=== PATIENT | male | born 1975 | race Caucasian/White ===

== ENCOUNTER 2020-04-18 16:56 | Emergency (ER) | payer SELFPAY ==
[2020-04-18] MEDS ORDERED: LORAZEPAM INJ 2 MG/1 ML VIAL IV ONE (18:09)
[2020-04-18 18:51] LABS: ABSOLUTE LYMPHOCYTES (AUTO) 3.1 10^3/uL (0.5-4.7); ABSOLUTE MONOCYTES (AUTO) 0.6 10^3/uL (0.1-1.4); ABSOLUTE NEUT (AUTO) 4.2 10^3/uL (1.7-8.2); BASOPHILS % (AUTO) 0.3 % (0-2); EOSINOPHILS % (AUTO) 0.1 % (0-6); HEMATOCRIT 45.8 % (37.9-51.0); HEMOGLOBIN 16.1 g/dL (13.5-17.0); LYMPHOCYTES % (AUTO) 39.3 % (13-45); MEAN CORPUSCULAR HEMOGLOBIN 33.9 pg (27.0-33.4); MEAN CORPUSCULAR HGB CONC 35.2 g/dL (32.0-36.0); MEAN CORPUSCULAR VOLUME 96 fl (80-97); MONOCYTES % (AUTO) 7.3 % (3-13); PLATELET COUNT 242 10^3/uL (150-450); RED BLOOD COUNT 4.75 10^6/uL (4.35-5.55); RED CELL DISTRIBUTION WIDTH 13.9 % (11.5-14.0); TOTAL CELLS COUNTED % (AUTO) 100 %; WHITE BLOOD COUNT 7.9 10^3/uL (4.0-10.5)
[2020-04-18 19:00] LABS: ALBUMIN 5.1 g/dL (3.5-5.0); ALCOHOL 126 mg/dL (NONE DETECTED); ALKALINE PHOSPHATASE 49 U/L (38-126); ANION GAP 14 (5-19); ASPARTATE AMINO TRANSFERASE 33 U/L (17-59); BILIRUBIN,DIRECT 0.1 mg/dL (0.0-0.4); BILIRUBIN,TOTAL 0.3 mg/dL (0.2-1.3); BLOOD UREA NITROGEN 9 mg/dL (7-20); CALCIUM 10.8 mg/dL (8.4-10.2); CARBON DIOXIDE 25 mmol/L (22-30); CHLORIDE 101 mmol/L (98-107); GLUCOSE 287 mg/dL (75-110); POTASSIUM 4.2 mmol/L (3.6-5.0); SALICYLATE 1.2 mg/dL (2.0-20.0); TOTAL PROTEIN 8.5 g/dL (6.3-8.2)
[2020-04-18 19:06] LABS: ACETAMINOPHEN < 10 ug/mL (10-30)
[2020-04-18 19:12] LABS: APPEARANCE,URINE CLEAR; BILIRUBIN,URINE NEGATIVE (NEGATIVE); COLOR,URINE STRAW; GLUCOSE, URINE >=500 mg/dL (NEGATIVE); KETONES,URINE TRACE mg/dL (NEGATIVE); LEUKOCYTE ESTERASE,URINE NEGATIVE (NEGATIVE); NITRITE,URINE NEGATIVE (NEGATIVE); PROTEIN,URINE NEGATIVE (NEGATIVE); UROBILINOGEN,URINE NEGATIVE mg/dL (<2.0)
--- NOTE | 2020-04-18 19:12 | ER Document Report ---
ED Substance Abuse / Acc. OD - General Chief Complaint: ETOH Abuse Stated Complaint: POSSIBLE ETOH Mode of Arrival: Medic Information source: Patient, Emergency Med Personnel Cannot obtain history due to: Intoxicated Notes: Patient is a 44-year-old male was brought in by EMS with complaint of intoxication and Depakote abuse. Patient is being agitated loud and verbal condescending to nursing staff and other professionals. He is to the point of needing some sedation. Patient states that he only had 1 beer patient also states that he only took a loading dose of Depakote. Denies any other medical problems states that he is not diabetic when it has been reported that he has. Patient is adamant that he is not suicidal or homicidal that he was does not even know why he was brought in here. EMS reports that they got a blood alcohol of 0.19. Patient states that he originally took 1 Depakote but then he admits to taking for which he states is a loading dose for him. Patient is known to our psych people here. João was on tonight at the hospital when he arrived and informed me that he has a history of getting high on Depakote and taking more than he should as well as alcohol abuse. She does state that he has never had any history of suicidal ideation or attempts. She does state the patient has a past medical history of drug abuse with opiates. Patient does state that he does try to get high with the Depakote. She is known to him because he called her by name and again states that he is not suicidal or homicidal he just wants to be checked out and go home. TRAVEL OUTSIDE OF THE [place] IN LAST 30 DAYS: No - HPI Patient complains to provider of: Alcohol abuse, Substance abuse Onset/Duration: Gradual, Persistent, Worse Quality of pain: No pain Severity: None Situational problems related to: Other - Likes to have high Overdose of: Alcohol, Other - Depakote Similar symptoms previously: Yes Recently seen / treated by doctor: Yes - Related Data Allergies/Adverse Reactions: haloperidol [From Haldol] Allergy (Verified 04/18/20 17:51) Home Medications: Metformin, Novalog, Levothyroxine Past Medical History - General Information source: Patient, Emergency Med Personnel - Social History Smoking Status: Current Every Day Smoker Cigarette use (# per day): Yes - 1 pack a day Chew tobacco use (# tins/day): No Frequency of alcohol use: Heavy Drug Abuse: Prescription drugs Lives with: Family Family History: Reviewed & Not Pertinent Patient has suicidal ideation: No Patient has homicidal ideation: No Endocrine Medical History: Reports: Hx Diabetes Mellitus Type 1 Psychiatric Medical History: Reports: Hx Schizophrenia - schizoaffective disorder Review of Systems - Review of Systems Constitutional: No symptoms reported EENT: No symptoms reported Cardiovascular: No symptoms reported Respiratory: No symptoms reported Gastrointestinal: No symptoms reported Genitourinary: No symptoms reported Male Genitourinary: No symptoms reported Musculoskeletal: No symptoms reported Skin: No symptoms reported Hematologic/Lymphatic: No symptoms reported Neurological/Psychological: See HPI, Anxiety. denies: Homicidal ideation, Suicidal ideation -: Yes All other systems reviewed and negative Physical Exam - Vital signs Vitals: Resp BP Pulse Ox 36 H 135/75 H 91 L 04/18/20 18:32 04/18/20 18:32 04/18/20 18:32 Interpretation: Hypertensive, Tachycardic, Hypoxic - Notes Notes: PHYSICAL EXAMINATION: GENERAL: Patient is well-nourished well-developed 44-year-old male though no apparent distress is very agitated aggressive condescending towards females. Appears intoxicated but communicative HEAD: Atraumatic, normocephalic. EYES: Dilated pupils are equal round and reactive to light, extraocular movements intact, sclera anicteric, conjunctiva are normal. ENT: Nares patent, oropharynx clear without exudates. Moist mucous membranes. NECK: Normal range of motion, supple without lymphadenopathy LUNGS: Auscultation patient's lung while he is agitated do show that he has bilateral breath sounds that are decreased throughout no rhonchi rales or wheeze are heard at this time auscultation. HEART: R tachycardic rate at 105 bpm and rhythm without murmurs ABDOMEN: Soft, nontender, nondistended abdomen. No guarding, no rebound. No masses appreciated. Musculoskeletal: Normal range of motion, no pitting or edema. No cyanosis. NEUROLOGICAL: Neurologically patient appears to be intact although he is awake and alert and can answer questions appropriately he is very aggressive and agitated as well as very anxious. PSYCH: Normal mood, normal affect. SKIN: Warm, Dry, normal turgor, no rashes or lesions noted. Course - Re-evaluation Re-evalutation: 04/19/20 08:04 This migraine physician reading assistant I resumed care of patient at shift change from nighttime APC Shan. To inform you that patient's labs had improved substantially especially his ABG from 7.21 on his pH to 7.34 and his CO2 went from 65 down to 43. Given that patient had alcohol intoxication last night along with taking large amount of Depakote he has rebounded very well family is here currently to take him home. Examination this morning shows him to be awake alert and oriented. He is answering questions appropriately and feels somewhat remiss about him taking as much as he did last night. He is being discharged into family's care today. - Vital Signs Vital signs: Temp Pulse Resp BP Pulse Ox 23 H 129/92 H 99 04/19/20 03:01 04/19/20 03:01 04/19/20 03:01 - Laboratory Results Result Diagrams: 04/18/20 18:30 04/18/20 18:30 Laboratory Results Interpreted: 04/18/20 04/18/20 04/18/20 18:30 18:30 18:30 MCH 33.9 H Carbonic Acid ABG pH ABG pCO2 ABG pO2 ABG HCO3 ABG O2 Saturation VBG pH VBG pCO2 Glucose 287 H POC Glucose Calcium 10.8 H Total Protein 8.5 H Albumin 5.1 H Urine Glucose (UA) >=500 H Urine Ketones TRACE H Salicylates 1.2 L Acetaminophen < 10 L 04/18/20 04/18/20 04/19/20 19:00 21:35 07:04 MCH Carbonic Acid 1.40 H ABG pH 7.34 L ABG pCO2 46.5 H ABG pO2 135.0 H ABG HCO3 24.6 H ABG O2 Saturation 98.5 H VBG pH 7.21 L VBG pCO2 65.6 H* Glucose POC Glucose 233 H Calcium Total Protein Albumin Urine Glucose (UA) Urine Ketones Salicylates Acetaminophen Critical Laboratory Results Reviewed: No Critical Results - Radiology Results Critical Radiology Results Reviewed: No Critical Results - EKG Interpretation by Ia EKG shows normal: Sinus rhythm Rate: Normal Rhythm: NSR Discharge - Discharge Clinical Impression: Depakote ingestion Alcohol intoxication Qualifiers: Complication of substance-induced condition: with unspecified complication Qualified Code(s): F10.929 - Alcohol use, unspecified with intoxication, un specified Condition: Stable Disposition: HOME, SELF-CARE Instructions: Acute Alcohol Intoxication ([facility]) Additional Instructions: As we discussed you need to be more careful with taking your alcohol and your Depakote together. Try not to overload yourself on Depakote this caused a little bit of a respiratory problem last night which you did correct on your own however the next time may not be as leann. I suggest possible intervention with your primary care provider to reevaluate your diabetes since her sugars were up slightly. Alcohol also increased blood sugars. Highly suggest avoiding alcohol for the next several days. Return to ER should you have any concerns or problems. Forms: Elevated Blood Pressure, Smoking Cessation Education Referrals: [facility] [Provider Group] - Follow up as needed [facility] [Outside] - Follow up as needed
[2020-04-18 19:21] LABS: VENOUS BLOOD BASE EXCESS -3.5 mmol/L; VENOUS BLOOD HCO3 25.8 mmol/L (20-32); VENOUS BLOOD PH 7.21 (7.30-7.42)
[2020-04-18 19:29] LABS: VENOUS BLOOD PCO2 65.6 mmHg (35-63)
[2020-04-18 19:31] LABS: URINE AMPHETAMINES SCREEN NEGATIVE; URINE BARBITURATES SCREEN NEGATIVE; URINE BENZODIAZEPINES SCREEN NEGATIVE; URINE COCAINE SCREEN NEGATIVE; URINE MARIJUANA (THC) SCREEN NEGATIVE; URINE METHADONE SCREEN NEGATIVE; URINE PHENCYCLIDINE SCREEN NEGATIVE
--- NOTE | 2020-04-18 19:35 | PSYCHOLOGICAL NOTE ---
Psych Note - Psych Note Date seen by psych provider: 04/18/20 Time seen by psych provider: 18:10 Psych Note: Reason for Consult: AMS Patient is current intoxicated with a reported ETOH of 0.19 per EMS/community paramedics. Patient reports he took 3 or 4 pills of his Depakote. Patient's mother told EMS responders she witnessed the patient take a "handful" of Depakote. He reportedly has a history substance abuse including misusing Depakote in an attempt to get high. Patient reportedly was not attempting to harm himself. When assisting the attending nurses with the patient, he denied wanting to harm himself.
--- NOTE | 2020-04-18 20:03 | RADIOLOGY REPORT (SQ) ---
EXAM DESCRIPTION: CHEST SINGLE VIEW IMAGES COMPLETED DATE/TIME: 04/18/2020 7:45 pm REASON FOR STUDY: Hypoxemia COMPARISON: None. EXAM PARAMETERS: NUMBER OF VIEWS: One view. TECHNIQUE: Single frontal radiographic view of the chest acquired. RADIATION DOSE: NA LIMITATIONS: None. FINDINGS: LUNGS AND PLEURA: No opacities, masses or pneumothorax. No pleural effusion. MEDIASTINUM AND HILAR STRUCTURES: No masses. Contour normal. HEART AND VASCULAR STRUCTURES: Heart normal in size. Normal vasculature. BONES: No acute findings. HARDWARE: None in the chest. OTHER: No other significant finding. IMPRESSION: No evidence of acute cardiopulmonary abnormality. TECHNICAL DOCUMENTATION: JOB ID: [id number] [employer]- All Rights Reserved Reading location - IP/workstation name: [email or web address]
--- NOTE | 2020-04-18 20:35 | EKG REPORT ---
SEVERITY:- NORMAL ECG - SINUS RHYTHM : Confirmed by: Raymon Torres MD 18-Apr-2020 20:34:20
[2020-04-18 21:49] LABS: ARTERIAL BLOOD BASE EXCESS -1.5 mmol/L; ARTERIAL BLOOD HCO3 24.6 mmol/L (20-24); ARTERIAL BLOOD O2 SATURATION 98.5 % (94-98); ARTERIAL BLOOD PCO2 46.5 mmHg (35-45); ARTERIAL BLOOD PH 7.34 (7.35-7.45)
[2020-04-18 21:51] LABS: ARTERIAL BLOOD FIO2 4L
[2020-04-19 08:18] VITALS: BP 152/79
== END 2020-04-19 08:18 | disposition home or self-care (01) ==
LOC: ER 16:56
DX: F10.129 Alcohol abuse with intoxication, unspecified (principal); F19.10 Other psychoactive substance abuse, uncomplicated; F41.9 Anxiety disorder, unspecified; R09.02 Hypoxemia; F17.210 Nicotine dependence, cigarettes, uncomplicated; E10.9 Type 1 diabetes mellitus without complications; Z79.4 Long term (current) use of insulin; Z79.899 Other long term (current) drug therapy
CPT/HCPCS: 93005; 99285; 96374; 36415; 82962; 80307 ×4; 82803 ×2; 85025; 80053; 81001; 80164; 71045; 93010; J2060